=== PATIENT | female | born 1960 | race Caucasian/White ===

== ENCOUNTER → 2018-01-13 | Outpatient (CLI) | payer OTHER ==
--- NOTE | 2018-01-13 12:12 | Diagnostic Imaging Report ---
PROCEDURE:CHEST 2 VIEWS TECHNIQUE:PA lateral chest INDICATION:Fall; Chest pain COMPARISON:Patients [facility], , CHEST 2 VIEWS, 02/18/2009, 9:20. FINDINGS: Lungs are clear and symmetrically inflated. No pleural effusions. Normal heart size, mediastinal contour, and pulmonary vasculature. Intact skeleton. Multilevel degenerative disc disease. CONCLUSION: No acute abnormality or interval change from February 2009 Dictated by: Krish Zhang M.D. on 01/13/2018 at 12:12 Electronically approved by: Krish Zhang M.D. on 01/13/2018 at 12:12
--- NOTE | 2018-01-13 12:14 | Diagnostic Imaging Report ---
PROCEDURE:KNEE 4 + VIEWS RT TECHNIQUE:AP, lateral, oblique and sunrise views knee totaling 5 radiographs INDICATION:Fall. Right knee pain. COMPARISON:None. FINDINGS: The right and image regional skeleton are intact and in anatomic alignment. Joint spaces are maintained. No effusion. Intact regional soft tissues. No foreign bodies. Trace regional arteriosclerosis. CONCLUSION: No acute abnormality. Dictated by: Krish Zhang M.D. on 01/13/2018 at 12:14 Electronically approved by: Krish Zhang M.D. on 01/13/2018 at 12:14
== END ==
LOC: RAD 11:24
PROVIDERS: ATTEND Internal Medicine
DX: S23.41XA Sprain of ribs, initial encounter (principal); M25.561 Pain in right knee
CPT/HCPCS: 71046

== ENCOUNTER → 2019-02-22 | Outpatient (CLI) | payer OTHER | LOC: RAD 13:11 | PROVIDERS: ATTEND Internal Medicine | DX: M79.662 Pain in left lower leg (principal) | CPT/HCPCS: 93971 ==